=== PATIENT | male | born 1945 | race Caucasian/White ===

== ENCOUNTER 2018-10-31 15:37 | Observation (INO) ==
[2018-10-31] MEDS ORDERED: Ipratropium/Albuterol Neb 3 ML IH ONE (15:52)
--- NOTE | 2018-10-31 15:52 | Emergency Department Note ---
Disposition Clinical Impression: Acute exacerbation of chronic obstructive airways disease Disposition: Admitted As Inpatient Condition: Fair SOB HPI - General Stated Complaint: difficult in breathing Time Seen by Provider: 10/31/18 15:52 Source: patient, EMS Mode of arrival: EMS Limitations: no limitations Nursing Notes Reviewed: Yes Vital Signs Reviewed: Yes - History of Present Illness Patient presents to the ED via EMS with complaint of worsening shortness of breath over the past 6 days. Patient states is always "a little short of breath" but it has been much worse than usual. He reports a productive cough of yellow sputum as well as some rhinorrhea and congestion. He has had a sore throat but no sneezing. No fever or chills. No chest pain. No lower extremity swelling. He had abdominal pain 2 days ago but that has now gone away. There was never any nausea, vomiting or diarrhea. His is currently ill with GI symptoms. He has not been around anyone with any respiratory illness. He has a history of COPD but states he is not on any inhalers on a regular basis. He states he has oxygen at home that he used to need that has not needed it recently. He does wear CPAP at night. History is also notable for CHF with an AICD in place, hypertrophic cardiomyopathy, hypertension and high cholesterol. He has never had an [facility]. 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 He also has a history of skin cancer. Per EMS patient was audibly wheezing and in distress on their arrival. He was given 105 mg of IV Solu-Medrol, 1 DuoNeb and 1 albuterol treatment in route. He was satting in the upper 80s to low 90s on their arrival. - Related Data Home Medications Medication Instructions Recorded Confirmed Aspirin [Lo-Dose Aspirin EC] 81 mg PO DAILY 01/20/18 10/31/18 Carvedilol 12.5 mg PO BID 01/20/18 10/31/18 Gabapentin [Neurontin] 900 mg PO BID 01/20/18 10/31/18 Insulin Regular, Human [Humulin R 60 unit SQ 1200 01/20/18 10/31/18 U-500 Kwikpen] Insulin Regular, Human [Humulin R 70 units SQ 1800 01/20/18 10/31/18 U-500 Kwikpen] Insulin Regular, Human [Humulin R 100 unit SQ 0800 01/20/18 10/31/18 U-500 Kwikpen] Omeprazole [PriLOSEC] 40 mg PO BID 01/20/18 10/31/18 Simvastatin [Zocor] 40 mg PO HS 01/20/18 10/31/18 Furosemide [Lasix] 20 mg PO DAILY 10/31/18 10/31/18 Ketoconazole 2% CRM [Nizoral Cream] 1 appl TP DAILY 10/31/18 10/31/18 Ketorolac Tromethamine 10 mg PO Q6H 10/31/18 10/31/18 Naproxen [Naprosyn] 500 mg PO BID 10/31/18 10/31/18 Allergies Allergy/AdvReac Type Severity Reaction Status Date / Time No Known Allergies Allergy Verified 10/25/18 12:57 Constitutional: Denies: fever, chills, weakness, weight change Eyes: Denies: eye pain, eye discharge, vision change ENT ED: Reports: congestion. Denies: ear pain, throat pain, dental pain, hearing loss, epistaxis, dysphagia Cardiovascular: Denies: chest pain, palpitations, dyspnea on exertion, edema, syncope Respiratory: Reports: as per HPI, cough, dyspnea, wheezes, sputum production. Denies: hemoptysis, stridor Gastrointestinal: Denies: abdominal pain, nausea, vomiting, diarrhea, constipation, hematemesis, melena, hematochezia Genitourinary: Denies: urgency, dysuria, frequency, hematuria Musculoskeletal: Denies: back pain, neck pain, arthralgia, myalgia Integumentary: Denies: rash, abrasion, lesions Neurological: Denies: headache, weakness, numbness, paresthesias, confusion, abnormal gait, vertigo Psychiatric: Denies: anxiety, depression, suicidal thoughts, homicidal thoughts, auditory hallucinations, visual hallucinations Endocrine: Denies: fatigue Hematological/Lymphatic: Denies: easy bleeding, easy bruising Allergic/Immunologic: Denies: facial swelling, urticaria Past Medical History - Past Medical History Medical history: Reports: coronary artery disease, diabetes, GERD, hyperlipidemia Surgical history: Reports: orthopedic, other Psychiatric history: Reports: PTSD - Social History Smoking Status: Never smoker Smokeless Tobacco Status: No Alcohol use: Reports: none Drug use: Reports: none Physical Exam - General Limitations: no limitations General appearance: alert, in no apparent distress, obese (morbidly) - Head Head exam: atraumatic, normocephalic, normal inspection - Eye Eye exam: Present: normal appearance, PERRL, EOMI - ENT ENT exam: normal exam, normal oropharynx, mucous membranes moist - Neck Neck exam: Present: normal inspection, full ROM, trachea midline - Chest Chest inspection: Present: normal inspection, symmetric chest wall rise - Respiratory Respiratory exam: Present: wheezes (diffuse), other (scattered rhonchi). Absent: respiratory distress - Cardiovascular Cardiovascular exam: Present: regular rate, normal rhythm, normal heart sounds - Abdominal Exam Abdominal exam: Present: soft, Non-Tender. Absent: tenderness, distention, guarding, rebound, rigidity - Extremities Exam Extremities exam: Present: normal inspection, full ROM, pedal edema (trace bilaterally). Absent: tenderness - Back Exam Back exam: Present: normal inspection, full ROM. Absent: tenderness - Neurological Exam Neurological exam: Present: alert, oriented X3 - Psychiatric Psychiatric exam: Present: normal affect, normal mood - Skin Skin exam: Present: warm, dry, intact, normal color Course Course Narrative: Patient presents to the ED with previously worsening dyspnea and productive cough over the past week with history of COPD. On arrival he was still audibly wheezing although not in acute distress. Oxygen saturations have been in the low 90s since completing his last breathing treatment. He is afebrile, hemodynamically stable and nontoxic in appearance. Will given additional breathing treatment while labs and chest x-ray are obtained. Differential at this time would be COPD exacerbation versus pneumonia versus less likely CHF exacerbation. - Reevaluation(s) Reevaluation #1: Lotrisone showed no acute abnormalities with a normal troponin and BNP. Chest x-ray did not show any signs of pneumonia. Patient still had significant wheezing on reassessment with oxygen saturation staying in the low 90s. He was started on oxygen and I discussed with him and his family my recommendation for admission for COPD exacerbation with the need for antibiotics, steroids, breathing treatments and temporary oxygen. Patient was in agreement so I then spoke to the hospitalist, Dr. Grande who agreed to accept the patient. Vital Signs Temperature 97.5 F L 10/31/18 15:47 Pulse Rate 74 10/31/18 15:47 Respiratory Rate 18 10/31/18 15:47 Blood Pressure 129/77 10/31/18 15:47 O2 Sat by Pulse Oximetry 91 10/31/18 15:47 Temperature 97.5 F L 10/31/18 15:47 Pulse Rate 69 10/31/18 16:58 Respiratory Rate 22 10/31/18 17:46 Blood Pressure 130/80 10/31/18 17:46 O2 Sat by Pulse Oximetry 91 10/31/18 16:58 Oxygen Delivery Oxygen Delivery Room Air Shortness of Breath/Dyspnea - Differential Diagnosis Likely: acute exacerbation of chronic obstructive airways disease, congestive heart failure, pneumonia - Medical Records Medical records reviewed: Yes I reviewed the patient's medical records. - Lab Data Lab results reviewed: Yes I reviewed the patient's lab results. Result diagrams: 10/31/18 16:20 10/31/18 16:20 Lab Results 10/31/18 10/31/18 10/31/18 Range/Units 16:20 16:20 16:20 WBC 4.4 (4.3-11.1) K/mcL RBC 4.66 (4.19-5.50) M/mcL Hgb 15.0 (12.9-16.9) g/dL Hct 44.6 (37.5-50.1) % MCV 95.7 (83.0-100.0) fL MCH 32.2 (28.0-33.3) pg MCHC 33.6 (31.6-35.5) g/dL RDW 13.5 (11.5-14.5) % Plt Count 134 L (140-400) K/mcL MPV 9.9 (9.4-12.4) fL Immature Gran % 0.2 (0-4) % Seg Neutrophils % 47.7 % Lymphocytes % 44.5 % Monocytes % 6.5 % Eosinophils % 0.9 % Basophils % 0.2 % Neutrophils # 2.1 (1.6-8.9) K/mcL Lymphocytes # 2.0 (0.6-4.6) K/mcL Monocytes # 0.3 (0.0-1.3) K/mcL Eosinophils # 0.0 (0.0-0.6) K/mcL Basophils # 0.0 (0.0-0.2) K/mcL PT (9.4-12.1) Seconds INR Sodium 138 (136-145) mEq/L Potassium 4.0 (3.5-5.1) mEq/L Chloride 103 (98-107) mEq/L Carbon Dioxide 28 (23-29) mEq/L BUN 25 H (8-23) mg/dL Creatinine 1.27 (0.70-1.30) mg/dL Est GFR ( Amer) > 60 (> 60) Est GFR (Non-Af Amer) 56 L (> 60) BUN/Creatinine Ratio 20 (6-26) Glucose 144 H (70-105) mg/dL Calculated Osmolality 293 (280-300) Lactic Acid 1.0 (0.5-2.2) mmol/L Calcium 8.6 (8.6-10.3) mg/dL Troponin I < 0.03 (< 0.04) ng/mL B-Natriuretic Peptide (Less than 100) pg/mL 10/31/18 10/31/18 Range/Units 16:20 16:20 WBC (4.3-11.1) K/mcL RBC (4.19-5.50) M/mcL Hgb (12.9-16.9) g/dL Hct (37.5-50.1) % MCV (83.0-100.0) fL MCH (28.0-33.3) pg MCHC (31.6-35.5) g/dL RDW (11.5-14.5) % Plt Count (140-400) K/mcL MPV (9.4-12.4) fL Immature Gran % (0-4) % Seg Neutrophils % % Lymphocytes % % Monocytes % % Eosinophils % % Basophils % % Neutrophils # (1.6-8.9) K/mcL Lymphocytes # (0.6-4.6) K/mcL Monocytes # (0.0-1.3) K/mcL Eosinophils # (0.0-0.6) K/mcL Basophils # (0.0-0.2) K/mcL PT 12.3 H (9.4-12.1) Seconds INR 1.1 Sodium (136-145) mEq/L Potassium (3.5-5.1) mEq/L Chloride (98-107) mEq/L Carbon Dioxide (23-29) mEq/L BUN (8-23) mg/dL Creatinine (0.70-1.30) mg/dL Est GFR ( Amer) (> 60) Est GFR (Non-Af Amer) (> 60) BUN/Creatinine Ratio (6-26) Glucose (70-105) mg/dL Calculated Osmolality (280-300) Lactic Acid (0.5-2.2) mmol/L Calcium (8.6-10.3) mg/dL Troponin I (< 0.04) ng/mL B-Natriuretic Peptide 84 (Less than 100) pg/mL - Radiology Data Radiology results reviewed: Yes I reviewed the patient's radiology results. ITS Impressions Chest X-Ray 10/31/18 15:52 IMPRESSION: No acute cardiopulmonary abnormality. D/ / Justin Rhodes MD / Justin Rhodes MD Interpreting Provider: Justin Rhodes MD - EKG Data EKG attestation: Yes I reviewed and interpreted this EKG. EKG shows normal: Reports: sinus rhythm Rate: Reports: normal Rhythm: Reports: NSR [place]/QRS: Reports: normal Interpretation: Reports: no acute changes, nonspecific ST-T wave changes
[2018-10-31 16:33] LABS: Basophils % 0.2 %; Eosinophils % 0.9 %; Hematocrit 44.6 % (37.5-50.1); Immature Granulocytes % 0.2 % (0-4); Lymphocytes % 44.5 %; Mean Corpuscular HGB Conc 33.6 g/dL (31.6-35.5); Mean Corpuscular Hemoglobin 32.2 pg (28.0-33.3); Mean Corpuscular Volume 95.7 fL (83.0-100.0); Mean Platelet Volume 9.9 fL (9.4-12.4); Monocytes # 0.3 K/mcL (0.0-1.3); Monocytes % 6.5 %; Neutrophils # 2.1 K/mcL (1.6-8.9); Platelet Count 134 K/mcL (140-400); Red Blood Count 4.66 M/mcL (4.19-5.50); Red Cell Distribution Width 13.5 % (11.5-14.5); Segmented Neutrophils % 47.7 %
[2018-10-31 16:35] LABS: INR 1.1; Prothrombin Time 12.3 Seconds (9.4-12.1)
[2018-10-31 16:46] LABS: BUN/Creatinine Ratio 20 (6-26); Blood Urea Nitrogen 25 mg/dL (8-23); Calcium 8.6 mg/dL (8.6-10.3); Carbon Dioxide 28 mEq/L (23-29); Chloride 103 mEq/L (98-107); Glucose 144 mg/dL (70-105); Osmolality,Calculated 293 (280-300); Sodium 138 mEq/L (136-145); eGFR For Non-African Americans 56 (> 60)
[2018-10-31 16:48] LABS: Troponin I < 0.03 ng/mL (< 0.04)
[2018-10-31] MEDS ORDERED: levoFLOXacin 750 MG TABLET PO ONE (17:07)
[2018-10-31] MEDS ORDERED: Naloxone 0.4 MG/ML INJ IVP PRN ×2 (17:11→18:42)
[2018-10-31] MEDS ORDERED: D5% in Water 1,000 ML IVC PRN ×2 (17:16→18:42)
[2018-10-31] MEDS ORDERED: Dextrose Gel 15 GM/37.5 ML TUBE PO PRN ×4 (17:16→18:42)
[2018-10-31] MEDS ORDERED: *HR* Dextrose 50 % in Water (Syg) 50 ML SYRINGE IVP PRN ×2 (17:16→18:42)
[2018-10-31] MEDS ORDERED: Ipratropium/Albuterol Neb 3 ML IH SCH (20:00)
[2018-10-31] MEDS ORDERED: NON-FORMULARY MEDICATION 1 EACH EACH (Omeprazole [Prilosec] 40 MG) PO SCH (21:00)
[2018-10-31] MEDS ORDERED: NON-FORMULARY MEDICATION 1 EACH EACH (Carvedilol [Carvedilol] 12.5 MG) PO SCH (21:00)
[2018-10-31] MEDS ORDERED: Melatonin 3 MG TABLET PO SCH ×2 (21:00)
[2018-10-31] MEDS ORDERED: Gabapentin 300 MG CAPSULE PO SCH (21:00)
[2018-10-31] MEDS ORDERED: Insulin LISPRO 300 UNITS/3 ML VIAL SQ SCH ×2 (21:00)
[2018-10-31] MEDS: Gabapentin 300 MG CAPSULE PO SCH ×2 (21:44→21:48)
[2018-10-31] MEDS: Ipratropium/Albuterol Neb 3 ML IH SCH (21:48)
[2018-11-01] MEDS: Ipratropium/Albuterol Neb 3 ML IH SCH ×4 (00:02→11:41)
[2018-11-01] MEDS: methylPREDNISolone 125 MG/2 ML VIAL IVP SCH ×3 (00:02→11:41)
[2018-11-01] MEDS ORDERED: *HR* Enoxaparin 40 MG/0.4 ML SYRINGE SQ SCH (06:00)
[2018-11-01] MEDS ORDERED: Insulin LISPRO 300 UNITS/3 ML VIAL SQ SCH ×2 (07:30)
[2018-11-01] MEDS: Gabapentin 300 MG CAPSULE PO SCH ×2 (07:47→07:48)
[2018-11-01] MEDS ORDERED: *HR* Insulin Regular U-500 500 UNIT/ML SQ SCH ×3 (08:00→18:00)
[2018-11-01] MEDS ORDERED: INSULIN REGULAR HUMAN SQ SCH ×2 (08:00)
[2018-11-01] MEDS ORDERED: [UNRECOGNIZED DRUG - OTHER] SQ SCH ×2 (08:00)
[2018-11-01] MEDS ORDERED: Aspirin Enteric Coated 81 MG Tablet PO SCH ×2 (09:00)
[2018-11-01] MEDS ORDERED: Cholecalciferol (D-3) 1,000 UNIT TABLET PO SCH (09:00)
[2018-11-01] MEDS ORDERED: CHOLECALCIFEROL PO SCH (09:00)
[2018-11-01] MEDS ORDERED: Ketoconazole 2% CRM 15 GM TUBE TP SCH ×2 (09:00)
[2018-11-01] MEDS ORDERED: Furosemide 20 MG TABLET PO SCH ×2 (09:00)
--- NOTE | 2018-11-01 11:46 | Internal Med History&Physical ---
Date of Encounter: 11/01/18 Time of Encounter: 11:46 Assessment and Plan (1) Acute exacerbation of chronic obstructive airways disease Current visit: Yes Status: Acute We will treated with a burst of prednisone, antibiotic for 7 days, empirically. We have informed the patient that he should keep his cardiology appointment as scheduled on Saturday as well as an early follow-up with primary care physician. (2) Acute diarrhea Current visit: No Status: Acute This is improving and the patient has been instructed to notify his primary care provider if this does not resolve. (3) Hyperlipidemia Current visit: No Status: Chronic He is to continue his home medication regimen. Qualifiers: Hyperlipidemia type: unspecified Qualified Code(s): E78.5 - Hyperlipidemia, unspecified (4) Hypertension Current visit: No Status: Chronic Clinically controlled but apparently the reason for his hypertrophic cardio myopathy. Qualifiers: Hypertension type: essential hypertension Qualified Code(s): I10 - Essential (primary) hypertension (5) Hypertrophic cardiomyopathy Current visit: No Status: Chronic As above, no acute signs or symptoms. (6) Insulin-requiring or dependent type II diabetes mellitus Current visit: Yes Status: Acute The patient has insisted he remained on the home doses of you 500 which are quite high. He understands things need to be watched in terms of his steroids potentially elevating his sugar and follow-up with his primary care provider. (7) Morbid obesity Current visit: Yes Status: Acute Chronic (8) Coronary artery disease Current visit: Yes Status: Acute Clinically stable without current signs or symptoms. Qualifiers: Coronary Disease-Associated Artery/Lesion type: unspecified vessel or lesion type [place] vs. transplanted heart: [place] heart Associated angina: without angina Qualified Code(s): I25.10 - Atherosclerotic heart disease of [place] coronary artery without angina pectoris Internal Medicine - H&P: HPI Chief complaint: Shortness of breath Admitted From: Emergency Dept Plans for Post Hospital Care: Home History of present illness: Mr. Boone is a 73 year old male who was in his usual state of health until 2 days ago when he developed fevers, chills, sweats and dyspnea. This was associated with worsening cough which was productive of large amount of yellow phlegm. He denies chest pain, chest pressure, wheezing, changes in sleep, etc. He notes that he has had diarrhea for a couple of days but this is improving, overnight. No melena or hematochezia. Also, for the last 2 days he has had pain and irritation at the roof of systems mouth, mainly on the right. The patient has a past history of CPAP use for sleep apnea, at night. He uses oxygen for his COPD on an asneeded basis. He has cardiomyopathy which is apparently hypertrophic and he follows with Dr. Madhavi Emerson for same, scheduled in 2 days. He also is supposed to see his primary care physician in 2 days for routine follow-up. He has known coronary disease but no symptoms, recently. Today, the patient is much better than yesterday and certainly much better than last night. Per nursing, his oxygen saturation is 95% off oxygen. The patient has weakness of his legs and is been attending therapy but missed it because of his hospitalization. He has peripheral neuropathy with numbness most of the time. Past medical history was reviewed and includes diabetes, type 2 insulin- dependent, hypertension, hyperlipidemia, GERD, obesity. Patient is followed for his diabetes and medications by his . He is a nonuser of drugs. 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 - Social History Smoking Status: Never smoker Smokeless Tobacco Status: No Alcohol use: none Drug use: none - Family History Father Living Status: Hx Family Cardiac Disorders: Yes ([place]) Brother Living Status: Hx Family Cardiac Disorders: Yes (CAD s/p CABG) Internal Medicine - H&P: Meds Aspirin [Lo-Dose Aspirin EC] 81 mg PO DAILY 01/20/18 [History] Carvedilol 12.5 mg PO BID 01/20/18 [History] Gabapentin [Neurontin] 900 mg PO BID 01/20/18 [History] Insulin Regular, Human [Humulin R U-500 Kwikpen] 60 unit SQ 1200 01/20/18 [History] Insulin Regular, Human [Humulin R U-500 Kwikpen] 70 units SQ 1800 01/20/18 [History] Insulin Regular, Human [Humulin R U-500 Kwikpen] 100 unit SQ 0800 01/20/18 [History] Omeprazole [PriLOSEC] 40 mg PO BID 01/20/18 [History] Simvastatin [Zocor] 40 mg PO HS 01/20/18 [History] Furosemide [Lasix] 20 mg PO DAILY 10/31/18 [History] Ketoconazole 2% CRM [Nizoral Cream] 1 appl TP DAILY 10/31/18 [History] Ketorolac Tromethamine 10 mg PO Q6H 10/31/18 [History] Naproxen [Naprosyn] 500 mg PO BID 10/31/18 [History] Allergy/AdvReac Type Severity Reaction Status Date / Time No Known Allergies Allergy Verified 10/25/18 12:57 All Systems PM: He is edentulous with dentures. He wears hearing aids. These are not in place currently. The patient has a rash in his groin area bilaterally, low. He states that he was using cream and daily power for this but he ran out of the powder and cream. The rash has returned. This is consistent with fungal dermatitis. He has an abdominal hernia which he attributes to agent orange. He points to his ventral hernia. Patient has no complaint of chest discomfort, dyspnea, orthopnea, breathing problems, palpitations, nausea or vomiting, constipation or diarrhea, other changes in bowel habits, heartburn, difficulty with urination, kidney problems or kidney stones, fevers chills or sweats, rash or itching, seizures, headache or lightheadedness, heat or cold intolerance, blood problems or anemia, or other new complaints, except as mentioned above. Review of systems is otherwise negative. - Constitutional Vitals: Temp Pulse Resp BP Pulse Ox 97.8 F 68 14 145/79 93 11/01/18 07:30 11/01/18 07:30 11/01/18 07:30 11/01/18 07:30 11/01/18 07:30 Exam: Examination: (Except as mentioned above): General: In no apparent distress, alert and oriented 3. Morbidly obese. Head: Atraumatic and normocephalic. Eyes: Extraocular muscles are intact, pupils equal round and reactive to light and accommodation. Sclerae anicteric. Ears: External ears are normal to inspection and hearing is grossly normal. Nose: Patent without lesion noted. Mouth: No intraoral lesions seen. He does have an area of erythema which is well-circumscribed, superficial, from the right central hard palate extending rightward. This measures about 1.5 x 2.5 cm. It simply looks like a mild b urning with no excoriation. Neck: Supple with trachea midline. There is no thyromegaly or adenopathy and carotids are 2+ without bruit heard. Respiratory: No use of accessory muscles. Lungs are remarkable for sonorous rhonchi, diffusely. This could be upper airway sound. However, there are no si bilant rhonchi or rales.. Normal airflow. Cardiovascular: Regular rate and rhythm without murmur appreciated. Abdomen: Bowel sounds are normal. No hepatosplenomegaly masses or tenderness. Morbidly obese and therefore difficult to palpate deeply. He has ventral hernia consistent with obesity. It spontaneously reduces without strangulation, etc. Extremities: No cyanosis clubbing or edema. Good bilateral dorsalis pedis pulses Neurological: A and O 3. Cranial nerves II through XII are intact. No focal deficits and no abnormal movements or postures. Skin: Warm and non-diaphoretic with no lesions noted. He has post surgical change at the right great toe. Has family members are present, I am unable to adequately examine his groin area. Breasts, pelvic and rectal: Not examined. Internal Med - H&P Results - Labs CBC & Chem 7: 10/31/18 16:20 10/31/18 16:20 Labs: Short CBC 10/31/18 Range/Units 16:20 WBC 4.4 (4.3-11.1) K/mcL Hgb 15.0 (12.9-16.9) g/dL Hct 44.6 (37.5-50.1) % Plt Count 134 L (140-400) K/mcL Neutrophils # 2.1 (1.6-8.9) K/mcL BMP 10/31/18 16:20 Sodium 138 Potassium 4.0 Chloride 103 Carbon Dioxide 28 BUN 25 H Creatinine 1.27 Glucose 144 H Calcium 8.6 Cardiac Enzymes 10/31/18 Range/Units 16:20 Troponin I < 0.03 (< 0.04) ng/mL - Impressions ITS Impressions Chest X-Ray 10/31/18 15:52 IMPRESSION: No acute cardiopulmonary abnormality. D/ / Justin Rhodes MD / Justin Rhodes MD Interpreting Provider: Justin Rhodes MD - VTE Reasons for not Prescribing Prophylaxis: Treatment not Indicated - Low risk for VTE
[2018-11-01 11:50] VITALS: BP 146/92
--- NOTE | 2018-11-01 13:02 | Discharge Summary ---
Date of Encounter: 11/01/18 Time of Encounter: 13:00 - Discharge Diagnosis (1) Acute exacerbation of chronic obstructive airways disease Priority: Primary Status: Acute (2) Acute diarrhea Priority: Secondary Status: Acute (3) Hyperlipidemia Priority: Secondary Status: Chronic Qualifiers: Hyperlipidemia type: unspecified Qualified Code(s): E78.5 - Hyperlipidemia, unspecified (4) Hypertension Priority: Secondary Status: Chronic Qualifiers: Hypertension type: essential hypertension Qualified Code(s): I10 - Essential (primary) hypertension (5) Hypertrophic cardiomyopathy Priority: Secondary Status: Chronic (6) Insulin-requiring or dependent type II diabetes mellitus Priority: Secondary Status: Acute (7) Morbid obesity Priority: Secondary Status: Acute (8) Coronary artery disease Priority: Secondary Status: Acute Qualifiers: Coronary Disease-Associated Artery/Lesion type: unspecified vessel or lesion type [place] vs. transplanted heart: [place] heart Associated angina: without angina Qualified Code(s): I25.10 - Atherosclerotic heart disease of [place] coronary artery without angina pectoris Hospital course: Mr. Boone is a 73 year old male with acute exacerbation of COPD. He received IV Solu-Medrol and oral levofloxacin. Improved overnight. He is discharged on a burst of prednisone, 40 mg daily for 5 days as well as empiric antibiotic therapy with early follow-up with his PCP. - Time Spent with Patient Total time spent providing and/or coordinating discharge services: - Discharge Medications Prescriptions: New levoFLOXacin [Levaquin] 500 mg PO DAILY 7 Days #7 tablet PredniSONE [Deltasone] 40 mg PO DAILY 5 Days #5 tablet Nystatin POWDER [Nystop] 1 appl TP BID 14 Days #30 gm No Action Aspirin [Lo-Dose Aspirin EC] 81 mg PO DAILY Carvedilol 12.5 mg PO BID Gabapentin [Neurontin] 900 mg PO BID Insulin Regular, Human [Humulin R U-500 Kwikpen] 100 unit SQ 0800 Insulin Regular, Human [Humulin R U-500 Kwikpen] 60 unit SQ 1200 Insulin Regular, Human [Humulin R U-500 Kwikpen] 70 units SQ 1800 Omeprazole [PriLOSEC] 40 mg PO BID Simvastatin [Zocor] 40 mg PO HS Furosemide [Lasix] 20 mg PO DAILY Ketoconazole 2% CRM [Nizoral Cream] 1 appl TP DAILY Naproxen [Naprosyn] 500 mg PO BID Ketorolac Tromethamine 10 mg PO Q6H Home Medications: Aspirin [Lo-Dose Aspirin EC] 81 mg PO DAILY 01/20/18 [History] Carvedilol 12.5 mg PO BID 01/20/18 [History] Gabapentin [Neurontin] 900 mg PO BID 01/20/18 [History] Insulin Regular, Human [Humulin R U-500 Kwikpen] 60 unit SQ 1200 01/20/18 [History] Insulin Regular, Human [Humulin R U-500 Kwikpen] 70 units SQ 1800 01/20/18 [History] Insulin Regular, Human [Humulin R U-500 Kwikpen] 100 unit SQ 0800 01/20/18 [History] Omeprazole [PriLOSEC] 40 mg PO BID 01/20/18 [History] Simvastatin [Zocor] 40 mg PO HS 01/20/18 [History] Furosemide [Lasix] 20 mg PO DAILY 10/31/18 [History] Ketoconazole 2% CRM [Nizoral Cream] 1 appl TP DAILY 10/31/18 [History] Ketorolac Tromethamine 10 mg PO Q6H 10/31/18 [History] Naproxen [Naprosyn] 500 mg PO BID 10/31/18 [History] Nystatin POWDER [Nystop] 1 appl TP BID 14 Days #30 gm 11/01/18 [Rx] PredniSONE [Deltasone] 40 mg PO DAILY 5 Days #5 tablet 11/01/18 [Rx] levoFLOXacin [Levaquin] 500 mg PO DAILY 7 Days #7 tablet 11/01/18 [Rx] Allergies/Adverse Reactions: Allergy/AdvReac Type Severity Reaction Status Date / Time No Known Allergies Allergy Verified 10/25/18 12:57 Date of admission: 10/31/18 17:25 Primary care physician: Cj Nassar MD Discharging clinician: Sebastian Grande Anticipated date of discharge: 11/01/18 - Constitutional Vitals: Temp Pulse Resp BP Pulse Ox 98.2 F 68 14 146/92 93 11/01/18 11:49 11/01/18 11:49 11/01/18 11:49 11/01/18 11:49 11/01/18 12:23 Exam: Please see H&P this date. - Patient Status Disposition: Home, Self-Care Condition: Fair Overall status at discharge: patient is progressing back to baseline - Discharge Instructions Follow Up With: Cj Nassar MD [Primary Care Provider] - Forms: ED Satisfaction Letter - Diet and Activity Activity: resume usual activities as tolerated Diet: diabetic diet, low fat, low cholesterol - VTE Reasons for not Prescribing Prophylaxis: Treatment not Indicated - Low risk for VTE
[2018-11-01] MEDS ORDERED: levoFLOXacin 500 MG TABLET PO SCH (13:15)
[2018-11-01] MEDS ORDERED: predniSONE 20 MG TABLET PO SCH (13:15)
[2018-11-01] MEDS ORDERED: levoFLOXacin 750 MG TABLET PO ONE (17:07)
--- NOTE | 2018-11-02 08:46 | Electrocardiograph Report ---
[place] [id number] Test Date: 2018-10-31 Pat Name: Reyes Boone Department: EDG1 Room: 113 Gender: M [employer]: : 1945 Requested By: Lou Juarez Order Number: [id number] Reading MD: Myra Luacs Measurements Intervals [place] Rate: 74 P: 63 [place]: 184 QRS: 66 QRSD: 101 T: 161 QT: 383 QTc: 425 Interpretive Statements Sinus rhythm Abnormal T, consider ischemia, lateral leads Electronically Signed On 11-02-2018 8:44:53 EDT by Myra Lucas
== END 2018-11-01 14:13 | disposition home or self-care (01) ==
LOC: INPGRE 15:37 → EMEROOGRE 15:37 → INPGRE 17:53